=== PATIENT | female | born 1955 | race Caucasian/White ===

== ENCOUNTER 2022-03-26 05:58 | Inpatient (IN) | payer MEDICAID ==
[2022-03-23 10:57] LABS: BASOPHILS % (AUTO) 0.6 % (0-1); EOSINOPHILS # (AUTO) 0.1 X10'3 (0-0.9); EOSINOPHILS % (AUTO) 1.5 % (0-6); LYMPHOCYTES # (AUTO) 2.1 X10'3 (1.1-4.8); LYMPHOCYTES % (AUTO) 36.4 % (21-51); MEAN CORPUSCULAR HEMOGLOBIN 28.3 PG (27.0-31.0); MEAN CORPUSCULAR HGB CONC 32.3 g/dL (33.0-36.5); MEAN CORPUSCULAR VOLUME 87.5 FL (78-98); MEAN PLATELET VOLUME 9.5 FL (7.4-10.4); MONOCYTES # (AUTO) 0.4 X10'3 (0-0.9); MONOCYTES % (AUTO) 7.6 % (2-12); NEUTROPHILS # (AUTO) 3.2 X10'3 (1.8-7.7); NEUTROPHILS % (AUTO) 53.9 % (42-75); PRE OP HEMATOCRIT 45.4 % (35.0-45.0); PRE OP HEMOGLOBIN 14.7 g/dL (12.0-16.0); PRE OP PLATELET COUNT 176 X10'3 (140-440); RED BLOOD COUNT 5.19 X10'6 (4.20-5.60)
[2022-03-23 10:59] LABS: ALBUMIN 3.8 G/DL (3.4-5.0); ALKALINE PHOSPHATASE 93 IU/L (46-116); BLOOD UREA NITROGEN 12 MG/DL (7-18); BUN/CREATININE RATIO 14.8 (6.6-38.0); CALCIUM 9.8 MG/DL (8.5-10.1); CHLORIDE 105 MMOL/L (99-107); CREATININE 0.81 MG/DL (0.40-0.90); PRE OP ALT 20 U/L (30-65); PRE OP ANION GAP 4 (8-16); PRE OP AST 16 U/L (10-37); PRE OP BILIRUB, TOTAL 0.5 MG/DL (0.0-1.0); PRE OP GLUCOSE 92 MG/DL (70-104); PRE OP POTASSIUM 4.1 MMOL/L (3.4-5.1); PRE OP SODIUM 142 MMOL/L (135-145); TOTAL CARBON DIOXIDE 33.2 MMOL/L (24-32); TOTAL PROTEIN 7.7 G/DL (6.4-8.2); eGFR 71 ML/MIN
[~2022-03-26] VITALS: Ht 182.9 cm; Wt 117.9 kg
[2022-03-26] VITALS (18 sets, daily range): BP systolic 128–176; BP diastolic 76–100
[~2022-03-26 05:58] MED LIST: ADV50500 INH; ALBU18HF2 INH; ESTR42.510 VG; HYDR-3972 PO; IBUP-1985 PO; LORA10TA7 PO; MONT10TA21 PO; RIVA20TA PO; albuterol 2.5 MG/3 ML nebule NEB ONE; ceFAZolin inj. 2,000 MG in dextrose 5%-water 100 ML IV ONE; famotidine 20mg tablet PO ONE; ringers solution, lacted 1,000 ML IV SCH; tranexamic acid 650mg tablet PO ONE; vancomycin 1,500 MG in NS 300ml IV soln IV ONE
[2022-03-26 08:50] LABS: PRE OP PARTIAL THROMB. TIME 28 SECONDS (22-32)
[2022-03-26] MEDS ORDERED: ketorolac trometh. 30mg/ml inj. ONE (08:51)
[2022-03-26] MEDS ORDERED: BUPIVAcaine/PF 5 mg/ml 10ml ONE (08:51)
[2022-03-26] MEDS ORDERED: ROPIVAcaine 0.5% (5mg/ml) 30ml vial ONE ×2 (09:36→09:52)
[2022-03-26] MEDS ORDERED: sevoflurane 250ml liquid IH ONE (09:48)
[2022-03-26] MEDS ORDERED: ondansetron/PF 4mg/2ml inj ONE (09:48)
[2022-03-26] MEDS ORDERED: dexamethasone sod phosphate 10mg/ml inj ONE (09:48)
[2022-03-26] MEDS ORDERED: MIDAZolam 1 MG/ML 5ML VIAL ONE (09:50)
[2022-03-26] MEDS ORDERED: fentaNYL/PF 50MCG/1 ML 2ML syringe ONE (09:50)
[2022-03-26] MEDS ORDERED: propofol inj 20 ML IV ONE (09:52)
[2022-03-26] MEDS ORDERED: phenylephrine 10mg/ml inj. ONE (11:07)
[2022-03-26] MEDS ORDERED: ePHEDrine 50MG/ML INJ. ONE (11:09)
[2022-03-26] MEDS ORDERED: proCHLORperazine 10 MG/2 ml inj IV PRN (11:30)
[2022-03-26] MEDS ORDERED: meperidine/PF 25mg/ml syringe IV PRN ×3 (11:30)
[2022-03-26] MEDS ORDERED: ROPIVAcaine 0.2% (10 MG/5 ML) BOLUS INJECTION INTERSCALE PRN (11:30)
[2022-03-26] MEDS ORDERED: ondansetron/PF 4mg/2ml inj IV PRN ×2 (11:30→12:00)
[2022-03-26] MEDS ORDERED: ringers solution, lacted 1,000 ML IV SCH (11:30)
[2022-03-26] MEDS ORDERED: HYDROmorphone 1 mg/ml syringe IV PRN (12:00)
[2022-03-26] MEDS ORDERED: bisacodyl 10mg suppository rectal RC PRN (12:00)
[2022-03-26] MEDS ORDERED: albuterol 2.5 MG/3 ML nebule NEB PRN (12:00)
[2022-03-26] MEDS ORDERED: HYDROcodone/acetaminophen 10/325mg tab PO PRN (12:00)
[2022-03-26] MEDS ORDERED: diphenhydrAMINE 25mg capsule PO PRN ×2 (12:00)
[2022-03-26] MEDS ORDERED: naloxone 0.4 mg/ml inj IV PRN (12:00)
[2022-03-26] MEDS ORDERED: magnesium hydroxide 30ml (MOM) UD suspension PO PRN (12:00)
[2022-03-26] MEDS ORDERED: HYDROmorphone inj. 0.5 MG/0.5 ML DISP.SYRIN IV PRN (12:00)
--- NOTE | 2022-03-26 12:04 | NUR ---
Received from OR via HOSPITAL BED, AWAKE TO VERBAL STIMULI, DENIES PAIN, ON MASK 02, VSS. , accompanied by Anesthesiologist OLINDA and report given by Anesthesiolgist. PT LEFT SHOULDER IMMOBILZER IN PLACE WITH ICE PACK. CMS INTACT. PT SPO2 WNL, ENCOURAGED WITH DEEP BREATHING. Addendum: 03/26/22 at 1222 by Yassine Ramirez RN Amended: Links added.
[2022-03-26] MEDS: ROPIVAcaine 0.2%/PF PUMP/bolus 545 ML INTERSCALE SCH (12:25)
--- NOTE | 2022-03-26 13:04 | NUR ---
Report called to receiving nurse DAISY FELIX. Transferred via HOSPITAL BED Belongings BROUGHT TO PT ROOM 4014B. PT DELIVERED WITHOUT INCIDENT TO ROOM. CALL LIGHT WITHIN REACH AND BED IN LOW POSITION. VSS, BREATHING BASELINE, ON . NO C/O PAIN. . Special Issues communicated to receiving nurse. Addendum: 03/26/22 at 1332 by Yassine Ramirez RN Amended: Links added.
[2022-03-26] MEDS: ceFAZolin/D5W- 1GM premix 50 ML IV SCH (16:58)
[2022-03-26] MEDS: potassium cl 20mEq in 1/2 NS 1,000 ML IV SCH ×2 (17:06→21:11)
[2022-03-26] MEDS: HYDROcodone/acetaminophen 10/325mg tab PO PRN ×2 (17:20→21:20)
--- NOTE | 2022-03-26 18:20 | NUR ---
Patient in room ORTHO 4014. I have received report from FEI Vincent and had the opportunity to ask questions and assume patient care.
--- NOTE | 2022-03-26 18:30 | NUR ---
Patient in room ORTHO 4014. I have received report from Elyssa FELIX and had the opportunity to ask questions and assume patient care.
--- NOTE | 2022-03-26 18:35 | NUR ---
Problems reprioritized. Patient report given, questions answered & plan of care reviewed with Kristina FELIX.
[2022-03-26] MEDS ORDERED: non-formulary drug (Ibuprofen 1 TAB) PO SCH (20:00)
[2022-03-26] MEDS ORDERED: vancomycin/NS 1 GM ADD-VANTAGE 250 ML IV SCH (20:00)
[2022-03-26] MEDS: albuterol 2.5 MG/3 ML nebule NEB SCH (20:11)
[2022-03-26] MEDS: budesonide 0.5mg/2ml UD nebule IH SCH (20:11)
[2022-03-26] MEDS: sennosides 8.6mg tablet PO SCH (21:00)
[2022-03-27] VITALS (7 sets, daily range): BP systolic 119–146; BP diastolic 49–85
[2022-03-27] MEDS: ceFAZolin/D5W- 1GM premix 50 ML IV SCH (01:00)
[2022-03-27] MEDS: albuterol 2.5 MG/3 ML nebule NEB SCH ×4 (02:56→21:08)
[2022-03-27] MEDS: potassium cl 20mEq in 1/2 NS 1,000 ML IV SCH ×3 (04:27→20:35)
[2022-03-27] MEDS: HYDROcodone/acetaminophen 10/325mg tab PO PRN ×3 (05:19→19:20)
--- NOTE | 2022-03-27 06:20 | NUR ---
Problems reprioritized. Patient report given, questions answered & plan of care reviewed with ELVIRA Ritter.
--- NOTE | 2022-03-27 06:23 | NUR ---
Patient in room ORTHO 4014. I have received report from ELVIRA Acevedo and had the opportunity to ask questions and assume patient care.
--- NOTE | 2022-03-27 06:25 | NUR ---
Problems reprioritized. Patient report given, questions answered & plan of care reviewed with ELVIRA Ritter.
[2022-03-27 06:27] LABS: BASOPHILS % (AUTO) 0.2 % (0-1); EOSINOPHILS % (AUTO) 0 % (0-6); HEMATOCRIT 40.7 % (35.0-45.0); HEMOGLOBIN 13.3 g/dl (12.0-16.0); LYMPHOCYTES # (AUTO) 1.3 X10'3 (1.1-4.8); LYMPHOCYTES % (AUTO) 11.9 % (21-51); MEAN CORPUSCULAR HEMOGLOBIN 28.8 PG (27.0-31.0); MEAN CORPUSCULAR HGB CONC 32.8 g/dL (33.0-36.5); MEAN CORPUSCULAR VOLUME 87.8 FL (78-98); MONOCYTES # (AUTO) 0.8 X10'3 (0-0.9); MONOCYTES % (AUTO) 7.3 % (2-12); NEUTROPHILS # (AUTO) 8.8 X10'3 (1.8-7.7); NEUTROPHILS % (AUTO) 80.6 % (42-75); PLATELET COUNT 147 X10'3 (140-440); RED BLOOD COUNT 4.64 X10'6 (4.20-5.60); RED CELL DISTRIBUTION WIDTH 15.7 % (11.5-14.5); WHITE BLOOD COUNT 10.9 X10'3 (4.5-11.0)
[2022-03-27 06:46] LABS: ANION GAP 6 (8-16); CHLORIDE 105 MMOL/L (99-107); POTASSIUM 4.4 MMOL/L (3.5-5.1); SODIUM 140 MMOL/L (135-145); TOTAL CARBON DIOXIDE 28.8 MMOL/L (24-32)
[2022-03-27] MEDS: ESTRADIOL VG SCH (08:00)
[2022-03-27] MEDS: budesonide 0.5mg/2ml UD nebule IH SCH ×2 (08:24→21:08)
[2022-03-27] MEDS: loratadine 10mg tablet PO SCH (09:25)
[2022-03-27] MEDS: montelukast 10mg tablet PO SCH (09:25)
[2022-03-27] MEDS: aspirin 325mg tablet PO SCH (09:25)
[2022-03-27] MEDS: rivaroxaban 20mg tablet PO SCH (09:25)
[2022-03-27] MEDS: oxyCODONE IR 5mg (immed. release) tablet PO PRN (09:25)
--- NOTE | 2022-03-27 18:00 | NUR ---
Patient in room ORTHO 4014. I have received report from ELVIRA Anderson and had the opportunity to ask questions and assume patient care.
--- NOTE | 2022-03-27 18:15 | NUR ---
Patient in room ORTHO 4014. I have received report from ELVIRA Ritter and had the opportunity to ask questions and assume patient care.
--- NOTE | 2022-03-27 18:38 | NUR ---
Problems reprioritized. Patient report given, questions answered & plan of care reviewed with ELVIRA Acevedo.
[2022-03-27] MEDS: sennosides 8.6mg tablet PO SCH (19:20)
[2022-03-27] MEDS: celeCOXIB 100mg capsule PO SCH (19:20)
[2022-03-27] MEDS: guaiFENesin/codeine phos 10ml UD oral syrup PO PRN (22:43)
[2022-03-28] MEDS: oxyCODONE IR 5mg (immed. release) tablet PO PRN ×3 (01:42→13:47)
[2022-03-28] MEDS: ROPIVAcaine 0.2%/PF PUMP/bolus 545 ML INTERSCALE SCH (02:31)
[2022-03-28] MEDS: albuterol 2.5 MG/3 ML nebule NEB SCH ×2 (02:40→08:29)
[2022-03-28] MEDS: guaiFENesin/codeine phos 10ml UD oral syrup PO PRN ×2 (02:43→10:51)
[2022-03-28 06:00] VITALS: BP 150/80
--- NOTE | 2022-03-28 06:13 | NUR ---
Problems reprioritized. Patient report given, questions answered & plan of care reviewed with ELVIRA Ritter.
--- NOTE | 2022-03-28 06:15 | NUR ---
Patient in room ORTHO 4014. I have received report from ELVIRA Acevedo and had the opportunity to ask questions and assume patient care.
[2022-03-28 07:10] LABS: BASOPHILS % (AUTO) 0.3 % (0-1); EOSINOPHILS % (AUTO) 0.7 % (0-6); HEMOGLOBIN 12.2 g/dl (12.0-16.0); LYMPHOCYTES # (AUTO) 1.6 X10'3 (1.1-4.8); LYMPHOCYTES % (AUTO) 22.3 % (21-51); MEAN CORPUSCULAR HEMOGLOBIN 28.6 PG (27.0-31.0); MEAN CORPUSCULAR HGB CONC 32.9 g/dL (33.0-36.5); MEAN CORPUSCULAR VOLUME 86.9 FL (78-98); MEAN PLATELET VOLUME 8.9 FL (7.4-10.4); MONOCYTES # (AUTO) 0.7 X10'3 (0-0.9); MONOCYTES % (AUTO) 10.2 % (2-12); NEUTROPHILS # (AUTO) 4.8 X10'3 (1.8-7.7); NEUTROPHILS % (AUTO) 66.5 % (42-75); PLATELET COUNT 128 X10'3 (140-440); RED BLOOD COUNT 4.26 X10'6 (4.20-5.60); WHITE BLOOD COUNT 7.3 X10'3 (4.5-11.0)
[2022-03-28] MEDS: ESTRADIOL VG SCH (08:00)
[2022-03-28] MEDS: budesonide 0.5mg/2ml UD nebule IH SCH (08:29)
[2022-03-28] MEDS: montelukast 10mg tablet PO SCH (09:26)
[2022-03-28] MEDS: celeCOXIB 100mg capsule PO SCH (09:26)
[2022-03-28] MEDS: loratadine 10mg tablet PO SCH (09:26)
[2022-03-28] MEDS: rivaroxaban 20mg tablet PO SCH (09:26)
[2022-03-28] MEDS: aspirin 325mg tablet PO SCH (09:26)
[2022-03-28 10:00] VITALS: BP 138/68
[2022-03-28] MEDS: HYDROcodone/acetaminophen 10/325mg tab PO PRN (10:51)
--- NOTE | 2022-03-28 14:24 | NUR ---
Patient was discharged at 1415 with instructions and verbalizing understanding of instructions, in wheelchair accompanied by nursing staff going home via private vehicle. All lines and tubes have been removed including PIV with intact cannula. Education has been provided and all questions were answered. Patient already has follow up appointment with Dr. Mina. Patient is stable and appropriate for discharge.
== END 2022-03-28 14:15 | disposition home or self-care (01) | DRG 322 ==
LOC: PAS IN 05:58 → EDSTATUS 09:30 → ORTHO 4S 13:20
PROVIDERS: ADMIT Orthopaedic Surgery; ATTEND Orthopaedic Surgery
PROC: 0LS40ZZ Reposition Left Upper Arm Tendon, Open Approach (ICD-10-PCS; 2022-03-26)
PROC: 3E0T3BZ Introduction of Anesthetic Agent into Peripheral Nerves and Plexi, Percutaneous Approach (ICD-10-PCS; 2022-03-26)
PROC: 3E0T33Z Introduction of Anti-inflammatory into Peripheral Nerves and Plexi, Percutaneous Approach (ICD-10-PCS; 2022-03-26)
PROC: 0RRK00Z Replacement of Left Shoulder Joint with Reverse Ball and Socket Synthetic Substitute, Open Approach (ICD-10-PCS; principal; 2022-03-26 09:48)
DX: M19.112 Post-traumatic osteoarthritis, left shoulder (principal); M87.012 Idiopathic aseptic necrosis of left shoulder; E66.01 Morbid (severe) obesity due to excess calories; M65.812 Other synovitis and tenosynovitis, left shoulder; J44.9 Chronic obstructive pulmonary disease, unspecified; M75.22 Bicipital tendinitis, left shoulder; M75.102 Unspecified rotator cuff tear or rupture of left shoulder, not specified as traumatic; Z68.35 Body mass index [BMI] 35.0-35.9, adult; S42.222 2-part displaced fracture of surgical neck of left humerus
CPT/HCPCS: 36415; 71046; 80051; 80053; 82948; 85025; 85610; 85730; 87081; 87811; 94640; 94760; 97110; 97116; 97161; 97530; A4565; A4615; A4618; A7000; C1776; G0378; J0690; J1100; J1885; J2175; J2250; J2370; J2405; J2704; J2795; J3010; J3370; J3480; J3490; J7040; J7060; J7120

== ENCOUNTER 2024-04-03 07:59 | Day surgery (SDC) | payer MEDICARE, MEDICAID ==
[2024-03-30 14:32] LABS: BASOPHILS % (AUTO) 0.4 % (0-1); EOSINOPHILS # (AUTO) 0.1 X10'3 (0-0.9); LYMPHOCYTES # (AUTO) 1.4 X10'3 (1.1-4.8); LYMPHOCYTES % (AUTO) 19.1 % (21-51); MEAN CORPUSCULAR HEMOGLOBIN 27.8 PG (27.0-31.0); MEAN CORPUSCULAR HGB CONC 31.5 g/dL (33.0-36.5); MEAN CORPUSCULAR VOLUME 88.1 FL (78-98); MEAN PLATELET VOLUME 8.8 FL (7.4-10.4); MONOCYTES # (AUTO) 0.5 X10'3 (0-0.9); MONOCYTES % (AUTO) 6.2 % (2-12); NEUTROPHILS # (AUTO) 5.3 X10'3 (1.8-7.7); NEUTROPHILS % (AUTO) 72.3 % (42-75); PRE OP HEMATOCRIT 43.5 % (35.0-45.0); PRE OP HEMOGLOBIN 13.7 g/dL (12.0-16.0); PRE OP PLATELET COUNT 242 X10'3 (140-440); PRE OP WHITE BLOOD COUNT 7.3 10'3 (4.8-10.8); RED BLOOD COUNT 4.94 X10'6 (4.20-5.60); RED CELL DISTRIBUTION WIDTH 16.6 % (11.5-14.5)
[2024-03-30 14:55] LABS: ALBUMIN 3.1 G/DL (3.4-5.0); ALBUMIN/GLOBULIN RATIO 0.7 (1.1-1.5); ALKALINE PHOSPHATASE 75 IU/L (46-116); BLOOD UREA NITROGEN 13 MG/DL (7-18); BUN/CREATININE RATIO 16.3 (10.0-20.0); CALCIUM 8.8 MG/DL (8.5-10.1); CHLORIDE 105 MMOL/L (99-107); PRE OP ALT 21 U/L (30-65); PRE OP ANION GAP 0 (8-16); PRE OP AST 15 U/L (10-37); PRE OP BILIRUB, TOTAL 0.2 MG/DL (0.0-1.0); PRE OP GLUCOSE 114 MG/DL (70-104); PRE OP POTASSIUM 4.3 MMOL/L (3.4-5.1); PRE OP SODIUM 143 MMOL/L (135-145); TOTAL CARBON DIOXIDE 38.2 MMOL/L (24-32); TOTAL PROTEIN 7.4 G/DL (6.4-8.2); eGFR 72 ML/MIN
[~2024-04-03] VITALS: Ht 172.7 cm; Wt 135.8 kg
[2024-04-03] VITALS (9 sets, daily range): BP systolic 145–161; BP diastolic 79–90; PULSE 72–96; RESP 12–22; TEMP 98.6; O2SAT 92–98
[2024-04-03] MEDS: clindamycin-Cleocin 900mg/D5W 50 ML IV ONE (05:30)
[~2024-04-03 07:59] MED LIST changes: -ADV50500 INH; +ALBU18HF2 IH; +ERGO500054 PO; -ESTR42.510 VG; +FURO-150 PO; -IBUP-1985 PO; +LOSA25TA41 PO; -MONT10TA21 PO; +OXYGEN NASALCANN; +SPIR25TA5 PO; -albuterol 2.5 MG/3 ML nebule NEB ONE; -ceFAZolin inj. 2,000 MG in dextrose 5%-water 100 ML IV ONE; -famotidine 20mg tablet PO ONE; -ringers solution, lacted 1,000 ML IV SCH; -tranexamic acid 650mg tablet PO ONE; -vancomycin 1,500 MG in NS 300ml IV soln IV ONE
[2024-04-03] MEDS: famotidine 20mg tablet PO ONE (09:32)
[2024-04-03] MEDS: ringers solution, lacted 1,000 ML IV SCH (09:33)
[2024-04-03] MEDS: albuterol 2.5 MG/3 ML nebule NEB ONE (09:42)
[2024-04-03] MEDS ORDERED: MIDAZolam 1 MG/ML 5ML VIAL ONE (10:03)
[2024-04-03] MEDS ORDERED: fentaNYL/PF 50MCG/1 ML 2ML syringe ONE (10:03)
[2024-04-03] MEDS ORDERED: ketorolac trometh 30MG/ML vial 30 MG/ML VIAL ONE (10:04)
[2024-04-03] MEDS ORDERED: ceFAZolin 1000mg inj ONE ×2 (10:32)
[2024-04-03] MEDS: BUPIVAcaine/PF 2.5mg/ml (0.25%) 10ml vial ONE (10:54)
[2024-04-03] MEDS ORDERED: LIDOcaine 1%/PF 5ML 10 MG/ML VIAL ONE (11:02)
[2024-04-03] MEDS: HYDROcodone/acetaminophen 10/325mg tab PO ONE (11:55)
== END 2024-04-03 12:07 | disposition home or self-care (01) ==
LOC: PAS 07:59
PROVIDERS: ATTEND Orthopaedic Surgery Hand Surgery
DX: M77.11 Lateral epicondylitis, right elbow (principal); I10 Essential (primary) hypertension; E66.01 Morbid (severe) obesity due to excess calories; J44.9 Chronic obstructive pulmonary disease, unspecified; M19.90 Unspecified osteoarthritis, unspecified site; Z85.3 Personal history of malignant neoplasm of breast; Z79.01 Long term (current) use of anticoagulants; Z79.1 Long term (current) use of non-steroidal anti-inflammatories (NSAID); Z79.899 Other long term (current) drug therapy; Z90.49 Acquired absence of other specified parts of digestive tract; Z90.710 Acquired absence of both cervix and uterus; Z96.611 Presence of right artificial shoulder joint; Z98.51 Tubal ligation status; Z98.891 History of uterine scar from previous surgery; Z98.890 Other specified postprocedural states; Z68.41 Body mass index [BMI] 40.0-44.9, adult; Z88.0 Allergy status to penicillin; Z88.1 Allergy status to other antibiotic agents; Z88.2 Allergy status to sulfonamides; Z88.5 Allergy status to narcotic agent; Z91.040 Latex allergy status; Z88.8 Allergy status to other drugs, medicaments and biological substances
CPT/HCPCS: 24358; 36415; 80053; 82948; 85025; 94640; 94760; A4215; A4565; A4615; A4618; A6446; A6449; A7000; J0690; J1885; J2250; J3010; J3490; J7030; J7120; Z7506; Z7512; Z7610; 85007